=== PATIENT | male | born 1960 | race Caucasian/White ===

== ENCOUNTER 2016-07-03 19:42 | Inpatient (IN) | payer MEDICARE, OTHER ==
[~2016-07-03] VITALS: Ht 189.2 cm; Wt 121.0 kg
[~2016-07-03 19:42] MED LIST: CIPR500T2 PO; LEVA750T9 PO; LEVO50TA4 PO; LISI-360 PO; OXYC-360 PO; PYRI200T4 PO; TAMS0.4C67 PO; ZOFR4TAB3 SL
[2016-07-03 20:00] VITALS: BP 116/75; PULSE 75; RESP 20; TEMP 99.1; O2SAT 97
[2016-07-03] MEDS ORDERED: ROSU40 PO (20:30)
[2016-07-03] MEDS ORDERED: SERT-129 PO (20:30)
[2016-07-03] MEDS ORDERED: TRAZ50TA12 PO (20:30)
[2016-07-03] MEDS ORDERED: LISI10TA3 PO (20:30)
[2016-07-03] MEDS ORDERED: SODIUM CHLOR 0.9% 1000 ML INJ 1,000 ML IV SCH (20:38)
[2016-07-03 20:41] VITALS: O2SAT 97
--- NOTE | 2016-07-03 20:44 | PD ---
HPI Chief Complaint: Flank/Kidney Pain Time Seen by Provider: 20:33 Travel History International Travel<30 days: No Contact w/Intl Traveler<30days: No Traveled to known affect area: No History of Present Illness HPI 56-year-old male here for evaluation of left flank and left lower abdominal pain , nausea, generalized weakness. Symptoms have been going on since , 3 days ago, have been constant, worse today. Pain is described as an ache, constant, 5 out of 10, slightly worse with movement and inspiration. He denies chest pain or dyspnea. He has felt nauseous but not vomited. No diarrhea. No melena or hematochezia. No fevers or chills. No dysuria. Patient has history of kidney stones, and states that the pain feels somewhat similar to when he had a kidney stone in the past. PFSH Past Medical History Arthritis: Yes Autoimmune Disease: No Cardiovascular Problems: Yes High Cholesterol: Yes Diabetes: No Endocrine: Yes Genitourinary: Yes Hypertension: Yes Immune Disorder: No Kidney Stones: Yes (03/25/11 STENT PLACED LT URETER) Musculoskeletal: Yes Neurologic: Yes (HERNIATED DISC REPAIR ) Psychiatric: No Reproductive: No Respiratory: Yes Sleep Apnea: Yes Thyroid Disease: Yes (HYPO) ?: Not Past Surgical History Abdominal Surgery: No Body Medical Devices: STENT LT UERITRER Cardiac Surgery: No Ear Surgery: No Endocrine Surgery: No Eye Surgery: No Genitourinary Surgery: Yes (STENT PLACED LT URETER 03/25/11) Gynecologic Surgery: No Joint Replacement: Yes (RT HIP AND RT SHOULDER) Oral Surgery: No Thoracic Surgery: No Other Surgery: Yes Social History Alcohol Use: No Tobacco Use: No Substance Use: No Allergies-Medications (Allergen,Severity, Reaction): Coded Allergies: No Known Allergies (Unverified , 07/03/16) Reported Meds & Prescriptions Reported Meds & Active Scripts Active Reported Trazodone (Trazodone HCl) 50 Mg Tab 50 Mg PO HS Lisinopril 10 Mg Tab 10 Mg PO DAILY Crestor (Rosuvastatin Calcium) 40 Mg Tab 40 Mg PO DAILY Sertraline (Sertraline HCl) 100 Mg Tab 100 Mg PO DAILY Review of Systems Except as stated in HPI: all other systems reviewed are Neg Physical Exam Narrative GENERAL: Well-developed, well-nourished, comfortable, no acute distress. SKIN: Focused skin assessment warm/dry. No rash. HEAD: Atraumatic. Normocephalic. EYES: Pupils equal and round. No scleral icterus. No injection or drainage. ENT: Mucous membranes pink and moist. NECK: Trachea midline. No JVD. CARDIOVASCULAR: Regular rate and rhythm. RESPIRATORY: No accessory muscle use. Clear to auscultation. Breath sounds equal bilaterally. GASTROINTESTINAL: Abdomen soft, nondistended. Mild left lower quadrant tenderness without peritoneal signs. Rest of abdomen is soft and nontender. MUSCULOSKELETAL: No obvious deformities. No clubbing. No cyanosis. No edema. No CVA tenderness. NEUROLOGICAL: Awake and alert. No obvious cranial nerve deficits. Motor grossly within normal limits. Normal speech. PSYCHIATRIC: Appropriate mood and affect; insight and judgment normal. Data Data Last Documented VS Vital Signs Date Time Temp Pulse Resp B/P Pulse Ox O2 Delivery O2 Flow Rate FiO2 07/03/16 21:58 98.5 65 18 153/67 95 Room Air Orders Complete Blood Count With Diff (07/03/16 20:38) Comprehensive Metabolic Panel (07/03/16 20:38) Lipase (07/03/16 20:38) Prothrombin Time / Inr (Pt) (07/03/16 20:38) Act Partial Throm Time (Ptt) (07/03/16 20:38) Urinalysis - C+S If Indicated (07/03/16 20:38) Iv Access Insert/Monitor (07/03/16 20:38) Ecg Monitoring (07/03/16 20:38) Oximetry (07/03/16 20:38) Sodium Chlor 0.9% 1000 Ml Inj (Ns 1000 M (07/03/16 20:38) Sodium Chloride 0.9% Flush (Ns Flush) (07/03/16 20:45) Electrocardiogram (07/03/16 20:38) Ckmb (Isoenzyme) Profile (07/03/16 20:38) Troponin I (07/03/16 20:38) Ct Abd/Pel W/O Iv Contrast (07/03/16 21:14) Morphine Inj (Morphine Inj) (07/03/16 22:00) Ondansetron Inj (Zofran Inj) (07/03/16 22:00) Labs Laboratory Tests Test 07/03/16 20:40 White Blood Count 6.4 TH/MM3 Red Blood Count 5.45 MIL/MM3 Hemoglobin 16.0 GM/DL Hematocrit 47.5 % Mean Corpuscular Volume 87.2 FL Mean Corpuscular Hemoglobin 29.3 PG Mean Corpuscular Hemoglobin 33.6 % Concent Red Cell Distribution Width 13.3 % Platelet Count 119 TH/MM3 Mean Platelet Volume 8.7 FL Neutrophils (%) (Auto) 77.0 % Lymphocytes (%) (Auto) 11.0 % Monocytes (%) (Auto) 10.9 % Eosinophils (%) (Auto) 0.6 % Basophils (%) (Auto) 0.5 % Neutrophils # (Auto) 4.9 TH/MM3 Lymphocytes # (Auto) 0.7 TH/MM3 Monocytes # (Auto) 0.7 TH/MM3 Eosinophils # (Auto) 0.0 TH/MM3 Basophils # (Auto) 0.0 TH/MM3 CBC Comment DIFF FINAL Differential Comment Prothrombin Time 11.2 SEC Prothromb Time International 1.0 RATIO Ratio Activated Partial 27.1 SEC Thromboplast Time Urine Color YELLOW Urine Turbidity CLEAR Urine pH 5.5 Urine Specific [place] 1.020 Urine Protein NEG mg/dL Urine Glucose (UA) NEG mg/dL Urine Ketones TRACE mg/dL Urine Occult Blood MOD Urine Nitrite NEG Urine Bilirubin NEG Urine Leukocyte Esterase NEG Urine RBC 3-5 /hpf Urine WBC 0-2 /hpf Urine Squamous Epithelial 0-5 /hpf Cells Urine Bacteria NONE /hpf Microscopic Urinalysis Comment CULT NOT INDICATED Sodium Level 140 MEQ/L Potassium Level 4.6 MEQ/L Chloride Level 101 MEQ/L Carbon Dioxide Level 30.5 MEQ/L Anion Gap 9 MEQ/L Blood Urea Nitrogen 26 MG/DL Creatinine 2.10 MG/DL Estimat Glomerular Filtration 33 ML/MIN Rate Random Glucose 160 MG/DL Calcium Level 9.0 MG/DL Total Bilirubin 0.7 MG/DL Aspartate Amino Transf 18 U/L (AST/SGOT) Alanine Aminotransferase 26 U/L (ALT/SGPT) Alkaline Phosphatase 83 U/L Total Creatine Kinase 93 U/L Troponin I LESS THAN 0.02 NG/ML Total Protein 6.9 GM/DL Albumin 3.5 GM/DL Lipase 111 U/L [facility] Medical Decision Making Medical Screen Exam Complete: Yes Emergency Medical Condition: Yes Interpretation(s) EKG: Sinus, rate 64, normal axis, normal intervals, no acute ischemic abnormality. Differential Diagnosis Nephrolithiasis, ureterolithiasis, pyelonephritis, UTI, cystitis, colitis, diverticulitis, dissection, AAA Narrative Course Vital signs reviewed. CBC shows WBC 6.4, hemoglobin 16, hematocrit 47.5, platelets 119. CMP is remarkable for BUN 26, creatinine 2.1, GFR 33, otherwise unremarkable. Lipase is 111. UA shows trace ketones, moderate occult blood. CT abdomen pelvis: CONCLUSION: 1. There is moderate hydronephrosis of the left kidney. There is a 1 cm stone in the proximal left ureter just below the left UPJ. 2. 9 mm stone lower pole left kidney not causing obstruction. 3. Bilateral renal cysts. Not significant change compared to the prior exam. 4. Multiple gallstones in the gallbladder. No biliary tract obstruction. 5. Scattered diverticulosis of the sigmoid colon without inflammatory changes. Patient is not complaining of significant pain in his left flank area. Given the size of the stone, the location in the proximal ureter, and significant pain with nausea, I believe the patient should be admitted for urology evaluation. Case discussed with on-call urologist Dr. Dockery who would like the patient to be admitted to the main hospital. He will evaluate the patient in consultation. Case discussed with hospitalist Dr. Boykin who will admit the patient to her service. Diagnosis Primary Impression: Ureterolithiasis Additional Impressions: Obstructive uropathy Intractable pain Admitting Information Admitting Physician Requests: Sameer Damon MD Jul 03, 2016 20:44
[2016-07-03] MEDS ORDERED: SODIUM CHLORIDE 0.9% FLUSH 10 ML FLUSH IV FLUSH PRN ×2 (20:45→22:30)
[2016-07-03 20:48] LABS: GLUCOSE,URINE NEG (NEG); KETONE, URINE TRACE mg/dL (NEG); NITRITE,URINE NEG (NEG); PH, URINE 5.5 (5.0-8.5)
[2016-07-03 20:49] LABS: BLOOD, URINE MOD (NEG); URINE COLOR YELLOW (YELLW/STRAW)
[2016-07-03 20:50] LABS: AUTOMATED NEUTROPHIL # 4.9 TH/MM3 (1.8-7.7); BASOPHIL % 0.5 % (0.0-2.0); EOSINOPHIL % 0.6 % (0.0-4.0); HEMATOCRIT 47.5 % (39.0-51.0); LYMPHOCYTE # 0.7 TH/MM3 (1.0-4.8); MEAN CELL VOLUME 87.2 FL (80.0-100.0); MEAN CORPUSCULAR HEMOGLOBIN 29.3 PG (27.0-34.0); MEAN CORPUSCULAR HGB CONC 33.6 % (32.0-36.0); MONO % 10.9 % (0.0-8.0); PLATELET COUNT 119 TH/MM3 (150-450); RED BLOOD COUNT 5.45 MIL/MM3 (4.50-5.90); RED CELL DISTRIBUTION WIDTH 13.3 % (11.6-17.2); WHITE BLOOD COUNT 6.4 TH/MM3 (4.0-11.0)
[2016-07-03 20:53] LABS: HEMO FLAGS DIFF FINAL
[2016-07-03 20:55] LABS: CHLORIDE 101 MEQ/L (98-107); POTASSIUM 4.6 MEQ/L (3.5-5.1); SODIUM (NA) 140 MEQ/L (136-145)
[2016-07-03 20:56] LABS: COMMENT (UR) CULT NOT INDICATED; CULTURE IF INDICATED CULT NOT INDICATED; SQUAMOUS EPITHELIAL CELL URINE 0-5 /hpf (0-5); WBC, URINE 0-2 /hpf (0-5)
[2016-07-03 20:59] LABS: ANION GAP 9 MEQ/L (5-15); APTT (PATIENT) 27.1 SEC (24.3-30.1); BICARBONATE 30.5 MEQ/L (21.0-32.0); BLOOD UREA NITROGEN 26 MG/DL (7-18); PROTHROMBIN TIME - PATIENT 11.2 SEC (9.8-11.6)
[2016-07-03 21:02] LABS: ALT (GPT) 26 U/L (12-78); AST (GOT) 18 U/L (15-37); GLOMERULAR FILTRATION RATE 33 ML/MIN (>89)
[2016-07-03 21:03] LABS: TOTAL BILIRUBIN ADULT 0.7 MG/DL (0.2-1.0)
[2016-07-03 21:05] LABS: ALKALINE PHOSPHATASE 83 U/L (45-117)
[2016-07-03 21:12] LABS: CREATINE KINASE 93 U/L (39-308)
--- NOTE | 2016-07-03 21:43 | RADHPO ---
EXAM DATE/TIME: 07/03/2016 21:12 [facility] COMPARISON: CT ABDOMEN & PELVIS W/O CONTRAST, March 25, 2011, 17:00. INDICATIONS : Left flank pain past 4 days. ORAL CONTRAST: No oral contrast ingested. RADIATION DOSE: 39.84 CTDIvol (mGy) MEDICAL HISTORY : Cardiovascular disease. Hypertension. Renal calculi. SURGICAL HISTORY : Fusion, lumbar. Renal stents Left hip replacement ENCOUNTER: Initial ACUITY: 4 - 6 days PAIN SCALE: 6/10 LOCATION: Left flank TECHNIQUE: Volumetric scanning of the abdomen and pelvis was performed. Using automated exposure control and ad justment of the mA and/or kV according to patient size, radiation dose was kept as low as reasonably achievable to obtain optimal diagnostic quality images. The lack of IV contrast limits the diagnosis for certain organ pathology. FINDINGS: LOWER LUNGS: The visualized lower lungs are clear. LIVER: Homogeneous density without lesion. There is no dilation of the biliary tree. Multiple calcified gal lstones in the gallbladder. No significant change compared to the prior study. No inflammatory change s are demonstrated.. SPLEEN: Normal size without lesion. PANCREAS: Within normal limits. KIDNEYS: No calcified right renal stones. No right hydronephrosis. There are multiple right renal cysts. The l argest cyst measures 5.3 cm along the upper pole. These cysts were present on the prior exam. There i s hydronephrosis of the left kidney. There is a 9 mm nonobstructing stone in the lower pole left kidn ey. There is a 1 cm stone in the proximal left ureter just below the left UPJ. A few small left renal cysts are demonstrated. Similar findings were seen in 2010. ADRENAL GLANDS: Within normal limits. VASCULAR: There is no aortic aneurysm. BOWEL/MESENTERY: The stomach, small bowel, and colon demonstrate no acute abnormality. There is no free intraperitone al air or fluid. Scattered diverticulosis of the sigmoid colon without inflammatory changes. The appe ndix is unremarkable. ABDOMINAL WALL: Within normal limits. RETROPERITONEUM: There is no lymphadenopathy. BLADDER: No wall thickening or mass. No stones seen. REPRODUCTIVE: Within normal limits. INGUINAL: There is no lymphadenopathy or hernia. MUSCULOSKELETAL: Bony degenerative changes. Evidence of previous lumbar spinal surgery with fusion. CONCLUSION: 1. There is moderate hydronephrosis of the left kidney. There is a 1 cm stone in the proximal left ur eter just below the left UPJ. 2. 9 mm stone lower pole left kidney not causing obstruction. 3. Bilateral renal cysts. Not significant change compared to the prior exam. 4. Multiple gallstones in the gallbladder. No biliary tract obstruction. 5. Scattered diverticulosis of the sigmoid colon without inflammatory changes. Rashel Zuniga MD on July 03, 2016 at 21:30 Board Certified Radiologist. This report was verified electronically.
[2016-07-03 21:58] VITALS: BP 153/67; PULSE 65; RESP 18; TEMP 98.5; O2SAT 95
[2016-07-03] MEDS ORDERED: MORPHINE SULFATE 8 MG/ML INJ IV PUSH ONE (22:00)
[2016-07-03] MEDS ORDERED: ONDANSETRON HCL 4 MG/2 ML VIAL IV PUSH ONE (22:00)
[2016-07-03] MEDS ORDERED: ONDANSETRON HCL 4 MG/2 ML VIAL IVP PRN (22:30)
[2016-07-03] MEDS ORDERED: ACETAMINOPHEN/HYDROcodone 325 MG/5 MG TAB PO PRN (22:30)
[2016-07-03] MEDS ORDERED: BISACODYL 10 MG SUPP RECTAL PRN (22:30)
[2016-07-03] MEDS ORDERED: ACETAMINOPHEN 325 MG TAB PO PRN (22:30)
[2016-07-03] MEDS: HYDROmorphone HCL PF 1 MG/ML VIAL IV PRN (23:31)
[2016-07-03] MEDS: SODIUM CHLOR 0.9% 1000 ML INJ 1,000 ML IV SCH (23:32)
[2016-07-03 23:55] VITALS: BP 131/67; PULSE 64; RESP 17; TEMP 97.3; O2SAT 92
[2016-07-04 04:45] VITALS: BP 129/66; PULSE 61; RESP 17; TEMP 97.2; O2SAT 95
[2016-07-04 08:00] VITALS: BP 130/70; PULSE 60; RESP 18; TEMP 97; O2SAT 96
[2016-07-04] MEDS ORDERED: SERTRALINE HCL 100 MG TAB PO SCH (09:00)
[2016-07-04] MEDS ORDERED: ATORVASTATIN 80 MG TAB PO SCH (09:00)
[2016-07-04] MEDS ORDERED: SODIUM CHLORIDE 0.9% FLUSH 10 ML FLUSH IV FLUSH SCH (09:00)
[2016-07-04] MEDS: HYDROmorphone HCL PF 1 MG/ML VIAL IV PRN (09:06)
[2016-07-04] MEDS: SODIUM CHLOR 0.9% 1000 ML INJ 1,000 ML IV SCH (09:14)
[2016-07-04 10:30] LABS: AUTOMATED NEUTROPHIL # 3.4 TH/MM3 (1.8-7.7); BASOPHIL % 0.2 % (0.0-2.0); HEMATOCRIT 42.3 % (39.0-51.0); LYMPH % 10.3 % (9.0-44.0); LYMPHOCYTE # 0.5 TH/MM3 (1.0-4.8); MEAN CELL VOLUME 86.9 FL (80.0-100.0); MEAN CORPUSCULAR HGB CONC 34.5 % (32.0-36.0); MONO % 12.2 % (0.0-8.0); NEUT % 76.3 % (16.0-70.0); PLATELET COUNT 98 TH/MM3 (150-450); RED BLOOD COUNT 4.86 MIL/MM3 (4.50-5.90); RED CELL DISTRIBUTION WIDTH 14.3 % (11.6-17.2); WHITE BLOOD COUNT 4.5 TH/MM3 (4.0-11.0)
[2016-07-04 10:37] LABS: HEMO FLAGS AUTO DIFF
--- NOTE | 2016-07-04 10:37 | EKG ---
Date Performed: 07/03/2016 Time Performed: 20:42:06 PTAGE: 56 years EKG: Sinus rhythm Compared to prior tracing no significant change Normal ECG PREVIOUS TRACING : 03/25/2011 17.43 DOCTOR: Jaime Castelan Interpretating Date/Time 07/04/2016 10:30:45
--- NOTE | 2016-07-04 11:07 | HHI.HP ---
[facility] Ad[facility] Diagnosis left ureterolithiasis, obstructive uropathy, intractable flank pain Diagnoses: Chief Complaint: left flank pain Travel History International Travel<30 Days: No Contact w/Intl Traveler <30 Da: No Traveled to Known Affected Are: No History of Present Illness 56-year-old male with history of nephrolithiasis s/p left ureteral stent placed 2010, HTN, HLD, presents with a 3 day history of left flank pain and nausea. The patient reports three days ago he started to notice left flank pain described as a constant ache 5/10 with radiation to the left lower quadrant, worse with any movement. He reports chills, but no fevers. Denies any gross hematuria. Denies any dysuria, increased urinary urgency/frequency, or suprapubic pain. He reports some nausea but no vomiting. Denies any diarrhea or constipation. Patient does have a history of kidney stones with history of left ureter stent placed in 2010. The patient is visiting from [place]. He has no other medical complaints at this time. Review of Systems Except as stated in HPI: all other systems reviewed are Neg Past Family Social History Past Medical History Hypertension Hyperlipidemia Nephrolithiasis Hypothyroidism Herniated Disc Past Surgical History Left Ureter Stent placed 2010 Left Total Hip Arthroplasty Left Shoulder Replacement Left Total Knee Arthroplasty Lumbar L4-5 Fusion Reported Medications Trazodone (Trazodone HCl) 50 Mg Tab 50 Mg PO HS Lisinopril 10 Mg Tab 10 Mg PO DAILY Crestor (Rosuvastatin Calcium) 40 Mg Tab 40 Mg PO DAILY Sertraline (Sertraline HCl) 100 Mg Tab 100 Mg PO DAILY Allergies: Coded Allergies: No Known Allergies (Unverified , 07/03/16) Active Ordered Medications Current Medications Medications (Trade) Dose Ordered Sig/Simon Route Start Time Stop Time Status Last Admin (NS 1000 ml Inj) 1,000 ml @ 100 mls/hr Q10H IV 07/03/16 22:19 07/04/16 09:14 (NS Flush) 2 ml UNSCH PRN IV FLUSH 07/03/16 22:30 (NS Flush) 2 ml BID IV FLUSH 07/04/16 09:00 07/04/16 09:00 (Zofran Inj) 4 mg Q6H PRN IVP 07/03/16 22:30 (Dulcolax Supp) 10 mg DAILY PRN RECTAL 07/03/16 22:30 (Tylenol) 650 mg Q6H PRN PO 07/03/16 22:30 (Ashkum 5-325 Mg) 1 tab Q4H PRN PO 07/03/16 22:30 (Dilaudid Pf Inj) 1 mg Q3H PRN IV 07/03/16 22:30 07/04/16 09:06 (Zoloft) 100 mg DAILY PO 07/04/16 09:00 07/04/16 09:01 (Desyrel) 50 mg HS PO 07/04/16 21:00 (Lipitor) 80 mg DAILY PO 07/04/16 09:00 07/04/16 09:01 Family History Father with lung cancer Grandfather and Uncle with diabetes Social History Denies any tobacco, alcohol, or illicit drug use. Physical Exam Vital Signs Vital Signs Date Time Temp Pulse Resp B/P Pulse Ox O2 Delivery O2 Flow Rate FiO2 07/04/16 08:00 97.0 60 18 130/70 96 07/04/16 04:45 97.2 61 17 129/66 95 07/03/16 23:55 97.3 64 17 131/67 92 07/03/16 22:30 18 07/03/16 21:58 98.5 65 18 153/67 95 Room Air 07/03/16 20:41 97 07/03/16 20:00 99.1 75 20 116/75 97 Physical Exam GENERAL: Well-nourished, well-developed middle aged male patient in [facility]. SKIN: Warm and dry. No rash. HEAD: Normocephalic. Atraumatic. EYES: Pupils equal and round. No scleral icterus. No injection or drainage. ENT: No nasal bleeding or discharge. Mucous membranes pink and moist. NECK: Supple. Trachea midline. CARDIOVASCULAR: Regular rate and rhythm. S1, S2 noted. No murmur appreciated. RESPIRATORY: No accessory muscle use. Clear to auscultation. Breath sounds equal bilaterally. GASTROINTESTINAL: Abdomen soft, non-tender, nondistended. Normoactive bowel sounds x4. MUSCULOSKELETAL: No obvious deformities. Extremities without clubbing, cyanosis , or edema. NEUROLOGICAL: Awake and alert. No obvious cranial nerve deficits. Motor grossly within normal limits. Moves all extremities spontaneously. Normal speech. PSYCHIATRIC: Appropriate mood and affect; insight and judgment normal. Laboratory Laboratory Tests Test 07/03/16 07/04/16 20:40 09:30 White Blood Count 6.4 4.5 Red Blood Count 5.45 4.86 Hemoglobin 16.0 14.6 Hematocrit 47.5 42.3 Mean Corpuscular Volume 87.2 86.9 Mean Corpuscular Hemoglobin 29.3 30.0 Mean Corpuscular Hemoglobin 33.6 34.5 Concent Red Cell Distribution Width 13.3 14.3 Platelet Count 119 98 Mean Platelet Volume 8.7 9.1 Neutrophils (%) (Auto) 77.0 76.3 Lymphocytes (%) (Auto) 11.0 10.3 Monocytes (%) (Auto) 10.9 12.2 Eosinophils (%) (Auto) 0.6 1.0 Basophils (%) (Auto) 0.5 0.2 Neutrophils # (Auto) 4.9 3.4 Lymphocytes # (Auto) 0.7 0.5 Monocytes # (Auto) 0.7 0.5 Eosinophils # (Auto) 0.0 0.0 Basophils # (Auto) 0.0 0.0 CBC Comment DIFF FINAL AUTO DIFF Differential Comment Prothrombin Time 11.2 Prothromb Time International 1.0 Ratio Activated Partial 27.1 Thromboplast Time Urine Color YELLOW Urine Turbidity CLEAR Urine pH 5.5 Urine Specific [place] 1.020 Urine Protein NEG Urine Glucose (UA) NEG Urine Ketones TRACE Urine Occult Blood MOD Urine Nitrite NEG Urine Bilirubin NEG Urine Leukocyte Esterase NEG Urine RBC 3-5 Urine WBC 0-2 Urine Squamous Epithelial 0-5 Cells Urine Bacteria NONE Microscopic Urinalysis Comment CULT NOT INDICATED Sodium Level 140 Potassium Level 4.6 Chloride Level 101 Carbon Dioxide Level 30.5 Anion Gap 9 Blood Urea Nitrogen 26 Creatinine 2.10 Estimat Glomerular Filtration 33 Rate Random Glucose 160 Calcium Level 9.0 Total Bilirubin 0.7 Aspartate Amino Transf 18 (AST/SGOT) Alanine Aminotransferase 26 (ALT/SGPT) Alkaline Phosphatase 83 Total Creatine Kinase 93 Troponin I LESS THAN 0.02 Total Protein 6.9 Albumin 3.5 Lipase 111 Result Diagram: 07/04/16 0930 07/03/162039 Imaging Last Impressions Abdomen/Pelvis CT 07/03/162113 Signed Impressions: Service Date/Time: Sunday, July 03, 2016 21:12 - CONCLUSION: 1. There is moderate hydronephrosis of the left kidney. There is a 1 cm stone in the proximal left ureter just below the left UPJ. 2. 9 mm stone lower pole left kidney not causing obstruction. 3. Bilateral renal cysts. Not significant change compared to the prior exam. 4. Multiple gallstones in the gallbladder. No biliary tract obstruction. 5. Scattered diverticulosis of the sigmoid colon without inflammatory changes. Rashel Zuniga MD Assessment and Plan Assessment and Plan 56-year-old male with history of nephrolithiasis s/p left ureteral stent placed 2010, HTN, HLD, presents with a 3 day history of left flank pain and nausea. Nephrolithiasis/Ureterolithiasis: CT abd/pelvis images reviewed, showed moderate hydronephrosis of the left kidney, 1cm stone in proximal left ureter just below left UPJ, 9mm stone left kidney not causing obstruction. UA with occult blood, otherwise unremarkable. Consult Urology. Monitor renal function and output. Pain control with Ashkum and IV Dilaudid prn. Start on Flomax. Urology planning for cystoscopy with L ureteral stent placement. KRISTY: Cr 2.1. Secondary to above. Give IVF. Monitor BMP. Improved today, Cr 1.77. Hypertension: chronic, BP fairly well controlled. Hold patient's Lisinopril with KRISTY. Hydralazine prn. Hyperlipidemia: chronic, continue patient's statin. DVT Prophylaxis: teds/SCDs, hold chemical prophylaxis with possible upcoming procedure. Written by Samira Dumont, acting as scribe for Dr. Reynolds on 07/04/16 at 11:22 All or portions of this note were transcribed by scribLACHELLE Chris. I , Dr. Yifan Reynolds personally performed the history, physical exam, and medical decision making; and confirmed the accuracy of the information in the transcribed note. Authenticated by Dr. Yifan Reynolds on 07/04/16 at 23:26. Discussed Condition With Patient, at bedside, real estate firm manager Planning 1500hrs: Patient is s/p cystoscopy with left ureteral stent placement. He was cleared for discharge by urology. He tolerated the procedure well and wants to go home. Will discharge. Discharge patient to home Condition on discharge: Improved Heart Healthy Diet as tolerated Ad Melanie activity Rx written: Keflex 500mg po q8h #15, Percocet 5/325mg po q6h prn pain #30, Flomax 0.4mg po hs Follow-up with primary care physician and urology Dr. Dockery within 1 week Check BMP in 3-5 days Samira Dumont PA-C Jul 04, 2016 11:07 Amado Reynolds DO Jul 04, 2016 23:26
[2016-07-04 11:10] LABS: PLATELET ESTIMATE SMEAR LOW (NORMAL); PLATELET MORPHOLOGY NORMAL (NORMAL); SCAN/DIFF AUTO DIFF CONFIRMED
[2016-07-04 11:11] LABS: ALT (GPT) 21 U/L (12-78); ANION GAP 6 MEQ/L (5-15); AST (GOT) 15 U/L (15-37); BICARBONATE 28.2 MEQ/L (21.0-32.0); BLOOD UREA NITROGEN 22 MG/DL (7-18); CHLORIDE 105 MEQ/L (98-107); GLOMERULAR FILTRATION RATE 40 ML/MIN (>89); POTASSIUM 4.4 MEQ/L (3.5-5.1); SODIUM (NA) 139 MEQ/L (136-145)
--- NOTE | 2016-07-04 11:12 | PD.CONS ---
HPI Service Urology Consult Requested By Reason for Consult Left renal and ureteral calculi Primary Care Physician Non-Staff Diagnosis: History of Present Illness 56 year-old gentleman with history recurrent nephrolithiasis who is visiting from [place] and presented to the emergency room with a three-day history of left flank and abdominal pain. Workup included a CT scan that demonstrated a 1 cm obstructing left proximal ureteral calculus as well as a 9 mm left lower pole renal calculus and bilateral renal cysts. Non- findings included multiple gallstones and scattered diverticulosis of the sigmoid colon without inflammatory changes. Urology is now consulted regarding ongoing management of the left renal and ureteral calculi. At the time of consultation the patient was resting comfortably and in no acute distress. He reports that he has passed multiple stones spontaneously in the past. The last stone episode was approximately 4 years ago. He also reports having what appears to be ureteroscopy with left stent placement in 2010. Review of Systems Constitutional: DENIES: Fever, Night Sweats Cardiovascular: DENIES: Chest pain Gastrointestinal: COMPLAINS OF: Abdominal pain (left lower), Nausea Genitourinary: DENIES: Hematuria Musculoskeletal: COMPLAINS OF: Back pain (left flank) Except as stated in HPI: all other systems reviewed are Neg Past Family Social History Past Medical History Recurrent nephrolithiasis Hypertension Hyperlipidemia Hypothyroidism Past Surgical History Status post left ureteral stent placement in the past (2010) Right hip surgery Right shoulder surgery Status post herniated disc repair Reported Medications Refer to EMR Allergies: Coded Allergies: No Known Allergies (Unverified , 07/03/16) Active Ordered Medications Refer to EMR Family History Reviewed and noncontributory Social History Denies tobacco, alcohol or intravenous drug abuse Physical Exam Vital Signs Date Time Temp Pulse Resp B/P Pulse Ox O2 Delivery O2 Flow Rate FiO2 07/04/16 08:00 97.0 60 18 130/70 96 07/04/16 04:45 97.2 61 17 129/66 95 07/03/16 23:55 97.3 64 17 131/67 92 07/03/16 22:30 18 07/03/16 21:58 98.5 65 18 153/67 95 Room Air 07/03/16 20:41 97 07/03/16 20:00 99.1 75 20 116/75 97 Physical Exam GENERAL: This is a well-nourished, well-developed patient, in no apparent distress. SKIN: No rashes, ecchymoses or lesions. Cool and dry. HEAD: Atraumatic. Normocephalic. No temporal or scalp tenderness. EYES: Pupils equal round and reactive. Extraocular motions intact. No scleral icterus. No injection or drainage. ENT: Nose without bleeding, purulent drainage or septal hematoma. Throat without erythema, tonsillar hypertrophy or exudate. Uvula midline. Airway patent. NECK: Trachea midline. No JVD or lymphadenopathy. Supple, nontender, no meningeal signs. CARDIOVASCULAR: Regular rate and rhythm without murmurs, gallops, or rubs. RESPIRATORY: Clear to auscultation. Breath sounds equal bilaterally. No wheezes , rales, or rhonchi. GASTROINTESTINAL: Abdomen soft, non-tender, nondistended. No hepato-splenomegaly , or palpable masses. No guarding. GENITOURINARY: No CVA tenderness MUSCULOSKELETAL: Extremities without clubbing, cyanosis, or edema. No joint tenderness, effusion, or edema noted. No calf tenderness. Negative Homans sign bilaterally. NEUROLOGICAL: Awake and alert. Cranial nerves II through XII intact. Motor and sensory grossly within normal limits. Five out of 5 muscle strength in all muscle groups. Normal speech. Laboratory Tests Test 07/03/16 07/04/16 20:40 09:30 White Blood Count 6.4 4.5 Red Blood Count 5.45 4.86 Hemoglobin 16.0 14.6 Hematocrit 47.5 42.3 Mean Corpuscular Volume 87.2 86.9 Mean Corpuscular Hemoglobin 29.3 30.0 Mean Corpuscular Hemoglobin 33.6 34.5 Concent Red Cell Distribution Width 13.3 14.3 Platelet Count 119 98 Mean Platelet Volume 8.7 9.1 Neutrophils (%) (Auto) 77.0 76.3 Lymphocytes (%) (Auto) 11.0 10.3 Monocytes (%) (Auto) 10.9 12.2 Eosinophils (%) (Auto) 0.6 1.0 Basophils (%) (Auto) 0.5 0.2 Neutrophils # (Auto) 4.9 3.4 Lymphocytes # (Auto) 0.7 0.5 Monocytes # (Auto) 0.7 0.5 Eosinophils # (Auto) 0.0 0.0 Basophils # (Auto) 0.0 0.0 CBC Comment DIFF FINAL AUTO DIFF Differential Comment AUTO DIFF CONFIRMED Prothrombin Time 11.2 Prothromb Time International 1.0 Ratio Activated Partial 27.1 Thromboplast Time Urine Color YELLOW Urine Turbidity CLEAR Urine pH 5.5 Urine Specific [place] 1.020 Urine Protein NEG Urine Glucose (UA) NEG Urine Ketones TRACE Urine Occult Blood MOD Urine Nitrite NEG Urine Bilirubin NEG Urine Leukocyte Esterase NEG Urine RBC 3-5 Urine WBC 0-2 Urine Squamous Epithelial 0-5 Cells Urine Bacteria NONE Microscopic Urinalysis Comment CULT NOT INDICATED Sodium Level 140 139 Potassium Level 4.6 4.4 Chloride Level 101 105 Carbon Dioxide Level 30.5 28.2 Anion Gap 9 6 Blood Urea Nitrogen 26 22 Creatinine 2.10 1.77 Estimat Glomerular Filtration 33 40 Rate Random Glucose 160 106 Calcium Level 9.0 8.7 Total Bilirubin 0.7 Aspartate Amino Transf 18 15 (AST/SGOT) Alanine Aminotransferase 26 21 (ALT/SGPT) Alkaline Phosphatase 83 Total Creatine Kinase 93 Troponin I LESS THAN 0.02 Total Protein 6.9 Albumin 3.5 3.0 Lipase 111 Platelet Estimate LOW Platelet Morphology Comment NORMAL Result Diagram: 07/04/1692907/04/16929 Imaging Last Impressions Abdomen/Pelvis CT 07/03/162113 Signed Impressions: Service Date/Time: Sunday, July 03, 2016 21:12 - CONCLUSION: 1. There is moderate hydronephrosis of the left kidney. There is a 1 cm stone in the proximal left ureter just below the left UPJ. 2. 9 mm stone lower pole left kidney not causing obstruction. 3. Bilateral renal cysts. Not significant change compared to the prior exam. 4. Multiple gallstones in the gallbladder. No biliary tract obstruction. 5. Scattered diverticulosis of the sigmoid colon without inflammatory changes. Rashel Zuniga MD Assessment and Plan Assessment and Plan Urologic impression: #1 obstructing 1 cm right proximal ureteral calculus. #2 9 mm left lower pole renal calculus #3 bilateral renal cysts Plan: #1 keep patient nothing by mouth #2 bring the patient to the operating room suite today for cystoscopy, left retrograde pyelogram and left ureteral stent placement #3 can probably be discharged home later today with arrangements made for outpatient shockwave lithotripsy either locally or with patient's established urologist in [place]. Edward Dockery MD Jul 04, 2016 11:12
[2016-07-04 11:13] LABS: ALKALINE PHOSPHATASE 67 U/L (45-117); TOTAL BILIRUBIN ADULT 0.7 MG/DL (0.2-1.0)
[2016-07-04] MEDS ORDERED: hydrALAZINE HCL 10 MG TAB PO PRN (11:30)
[2016-07-04] MEDS ORDERED: TAMSULOSIN HCL 0.4 MG CAP PO ONE (11:30)
[2016-07-04] MEDS ORDERED: IOHEXOL 350 MG/ML 10 ML VIAL (for RAD DIAG) ONE (11:57)
[2016-07-04] MEDS ORDERED: ePHEDrine/NS 25 MG/5 ML SYR IV ONE (12:00)
[2016-07-04] MEDS ORDERED: ONDANSETRON HCL 4 MG/2 ML VIAL IV PUSH ONE (12:00)
[2016-07-04] MEDS ORDERED: PROPOFOL 200 MG/20 ML AMP IV ONE (12:00)
[2016-07-04] MEDS ORDERED: MIDAZOLAM HCL 2 MG/2 ML VIAL ONE (12:16)
[2016-07-04] MEDS ORDERED: ceFAZolin INJ 1,000 MG VIAL ONE (12:17)
[2016-07-04] MEDS ORDERED: DEXAMETHASONE SOD PHOS 4 MG/ML VIAL ONE (12:17)
[2016-07-04] MEDS ORDERED: fentaNYL CITRATE 250 MCG/5 ML AMP ONE (12:17)
--- NOTE | 2016-07-04 13:18 | PD.OP ---
Operative Report Date of Surgery: Jul 04, 2016 Preoperative Diagnosis: (1) Ureteral calculus, left Postoperative Diagnosis: (1) Ureteral calculus, left Procedure: Cystoscopy, left retrograde pyelogram and left ureteral stent placement. Anesthesia: General Surgeon: Edward Dockery General Science Teacher(s): None Operation and Findings: Indication for procedure: Case of a pleasant 56-year-old gentleman with an obstructing greater than 1 cm left proximal ureteral calculus who presents now for cystoscopy, left retrograde pyelogram and left ureteral stent placement. Operative procedure in detail: Patient was brought to the operating room suite and placed supine on the OR table. He was then placed under general anesthesia. He was then repositioned in the dorsal lithotomy position and prepped and draped in normal sterile fashion. After appropriate timeout was undertaken I proceeded with cystoscopic evaluation utilizing the rigid cystoscope with the 30 lens and 20 Amharic sheath. The urethra was patent without stricture formation. The prostatic urethra was not obstructing. Further passes of a cystoscope within the urinary bladder revealed both right and left ureteral orifices to be in correct anatomic position. There was clear reflux noted on the right and there was no reflux noted on the left side. A 6 Amharic open-ended ureteral catheter was utilized and a left retrograde pyelogram study was performed. Patient was noted to have an obstructing left proximal ureteral stone as previously seen on the CT scan. I then passed a sensor 0.035 wire through the open-ended catheter negotiated the catheter around the stone and up into the left renal pelvis under fluoroscopic guidance. The open-ended catheter was then exchanged for a 6 Amharic 26 cm longterm double-J stent. The stent was passed on the both cystoscopic and fluoroscopic guidance without difficulty. Once the stent was in proper position and the trailing string was removed. With the stent placed there was bloody drainage of urine noted coming through the stent and around it and thus a decision was made to pass a Bentley catheter. An 18 Amharic 10 cc Bentley catheter was placed and connected to gravity drainage. The patient tolerated the procedures without complications and was transferred to the PACU in satisfactory condition. Edward Dockery MD Jul 04, 2016 13:18
[2016-07-04] MEDS ORDERED: CEPH-460 PO (13:20)
[2016-07-04] MEDS ORDERED: PERC5TAB12 PO (13:20)
[2016-07-04] MEDS ORDERED: TAMS0.4C4 PO (13:20)
[2016-07-04] MEDS ORDERED: oxyCODONE/ACETAMINOPHEN 5 MG/325 MG TAB PO PRN (13:30)
[2016-07-04 13:45] VITALS: BP 138/74; PULSE 64; RESP 13; O2SAT 94
--- NOTE | 2016-07-04 15:27 | HHI.DCPOC ---
Discharge Care Plan Diagnosis: (1) Ureterolithiasis (2) Obstructive uropathy Goals to Promote Your Health * To prevent worsening of your condition and complications * To maintain your health at the optimal level Directions to Meet Your Goals Take your medications as prescribed Follow your dietary instruction Follow activity as directed Keep your appointments as scheduled Take your immunizations and boosters as scheduled If your symptoms worsen call your PCP, if no PCP go to Urgent Care Center or Emergency Room Smoking is Dangerous to Your Health. Avoid second hand smoke Call the 24-hour hour crisis hotline for domestic abuse at Samira Dumont PA-C Jul 04, 2016 15:27 Amado Reynolds DO Jul 04, 2016 23:26
[2016-07-04] MEDS ORDERED: TAMSULOSIN HCL 0.4 MG CAP PO SCH (21:00)
[2016-07-04] MEDS ORDERED: traZODone HCL 50 MG TAB PO SCH (21:00)
== END 2016-07-04 18:37 | disposition home or self-care (01) | DRG 694 ==
LOC: PHED 19:42 → PHEDA 22:19 → UNDOADMOB 22:20 → OBSVTOIN 22:21 → N06A 23:58 → PHEDA 23:58 → UNDODISOB 07-04 18:37
PROVIDERS: ADMIT Hospitalist; ATTEND Hospitalist
PROC: BT1F1ZZ Fluoroscopy of Left Kidney, Ureter and Bladder using Low Osmolar Contrast (ICD-10-PCS; 2016-07-04)
PROC: 0T778DZ Dilation of Left Ureter with Intraluminal Device, Via Natural or Artificial Opening Endoscopic (ICD-10-PCS; principal; 2016-07-04 12:22)
DX: N13.2 Hydronephrosis with renal and ureteral calculous obstruction (principal); N17.9 Acute kidney failure, unspecified; I10 Essential (primary) hypertension; E78.5 Hyperlipidemia, unspecified; E03.9 Hypothyroidism, unspecified; N28.1 Cyst of kidney, acquired
CPT/HCPCS: 74176; 74420; 80053; 81001; 82550; 83690; 84484; 85025; 85610; 85730; 93005; 96361; 96374; 96375; C1769; J0690; J1100; J1170; J2250; J2270; J2405; J3010; J7030; Q9967